=== PATIENT | female | born 1950 | race Two or more races ===

== ENCOUNTER 2018-10-12 19:29 | Emergency (ER) | payer MEDICARE ==
[~2018-10-12] VITALS: Ht 160 cm; Wt 70.3 kg
[2018-10-12 19:51] VITALS: BP 134/91
--- NOTE | 2018-10-12 19:51 | NUR ---
PT BIBSELF C/O COUGH/CONGESTION/SINUS X 3 DAYS. PT IS AAOX4, NOT IN RESPIRATORY DISTRESS, V/S STABLE, KEPT RESTED AND COMFORTABLE, WILL CONTINUE TO MONITOR.
--- NOTE | 2018-10-12 20:14 | NUR ---
SEEN AND EXAMINED BY DR. EWING.
--- NOTE | 2018-10-12 20:30 | NUR ---
Patient discharged to home in stable condition. Written and verbal after care instructions given. Patient verbalizes understanding of instruction.
== END 2018-10-12 20:31 | disposition home or self-care (01) ==
LOC: EDBD 19:31 → ER 19:31
DX: J32.9 Chronic sinusitis, unspecified (principal)